=== PATIENT | male | born 1985 | race Asian ===

== ENCOUNTER 2023-06-14 01:54 | Emergency (ER) | payer OTHER, SELFPAY ==
[2023-06-14 02:09] VITALS: BP 121/87
--- NOTE | 2023-06-14 02:55 | ED.GENMED ---
History of Present Illness
General
Chief Complaint: Skin Surface Trauma
Source: patient
Exam Limitations: none
Time Seen by Provider: 06/14/23 02:23
Nursing documentation reviewed up to this point in time: agreed with
Travel History
Have you had any contact with someone who has COVID-19?: No
Do you have any symptoms of coronavirus? Fever > 100 degrees, chills, cough, shortness of breath, sore throat, loss of taste or smell, muscle aches, or headache?: No
History of Present Illness
History of Present Illness:
Patient presents to ED for an evaluation, secondary to continual intermittent bleeding from forehead laceration which occurred yesterday evening. Patient states that he was very tired and was sitting on a kitchen chair, when he slid over and may
have hit his head against the wall. Denies loss of consciousness. Denies any other injuries from the fall. Denies headache. Denies blurred vision. Denies dizziness. Denies nausea or vomiting. Patient unsure of his last tetanus vaccination.
Review of Systems
Review of Systems
Allergies reviewed?: Yes
All Other Systems: ROS reviewed and negative except as documented in HPI and ROS
Constitutional: Reports no symptoms
Skin: Reports other (forehead laceration)
Neurological: Reports no symptoms; Denies dizzy or headache
Phy Exam
Physical Exam
Physical Exam:
Physical Exam
General: no apparent distress, not acutely ill. afebrile
Head: an approx 3cm superficial, linear laceration above left eyebrow, without pulsatile bleeding.
Neck: supple. normal range of motion
Neuro: alert and oriented. no focal neurological deficits
Skin: no rash
Psychiatric: well kept. interactive and cooperative
Extremities: no edema. no calf tenderness.
Course
Vital Signs
Initial and Last Documented VS:
Initial Vital Signs
Temp Pulse Resp BP Pulse Ox
97.5 F 77 16 121/87 99
06/14/23 02:09 06/14/23 02:09 06/14/23 02:09 06/14/23 02:09 06/14/23 02:09
Last Documented Vital Signs
Temp Pulse Resp BP Pulse Ox
97.5 F 77 16 121/87 99
06/14/23 02:09 06/14/23 02:09 06/14/23 02:09 06/14/23 02:09 06/14/23 02:09
Procedures
Laceration Closure
Left Lateral Forehead:
Status of Wound: clean
Size of Wound in cm: 3
Description of Wound Edges: sharp
Preparation: cleaned with SurClens
Anesthesia: 1% Lidocaine with epi
Revision/Debridement: routine- no revision
Type of Closure: single layer closure
Skin Closure Material: 5-0 vicryl
Number of sutures: 5
MDM/Problems Addressed
MDM/Problems Addressed:
Wound well-approximated with placement of 5 sutures. Advised patient to keep the area clean, and follow-up with his primary care physician for potential suture removal, if sutures are still in place after 10 days. Patient otherwise is afebrile,
hemodynamically stable, neurologically intact, and without any distress at time of discharge.
*Critical Care Note
Total Time (30-74mins, 75-104mins- exclusive of procedures): Not Applicable
ED Attending Note
-
Portions of this chart may have been created with voice recognition software.� Occasional wrong word or��sound alike� substitutions may have occurred due to the inherent limitations of voice recognition software.
Discharge Plan
Departure
Patient Disposition: Home (Routine Discharge)
Date of Disposition: 06/14/23
Time of Disposition: 02:55
Patient with high blood pressure during this ER visit?: Yes
Condition: Good
Discharge Problem:
Laceration of forehead
Instructions: Laceration Repair With Stitches (DC)
Prescriptions:
No Action
dextroamphetamine-amphetamine [Adderall] 20 mg Tablet
20 mg PO TID
Referrals:
NONE,* [Active] -
Activity Restrictions/Additional Instructions:
As discussed, please follow up with your primary care physician with any further concerns. You have received absorbable sutures which should be absorbed completely within 10 days. However, if sutures remain, please see your primary care physician
to have your sutures removed.
Interventions
Interventions:
*Risk Screen - Suicide Last Done: 06/14/23 02:09
*Neglect/Abuse Screening Last Done: 06/14/23 02:09
*ED COVID-19 Vaccine History Last Done: 06/14/23 02:09
*Nursing Disposition Last Done: 06/14/23 03:11
ED-Skin Assessment Last Done: 06/14/23 02:38
Discharge Date and Time
Discharge Date/Time: 06/14/23 03:12
Print Language: [id number]
== END 2023-06-14 03:12 | disposition home or self-care (01) ==
LOC: EMR 01:54
PROVIDERS: EMERGENCY PHYSICIAN Emergency Medicine; FAMILY PHYSICIAN Family Medicine
DX: S01.81XA Laceration without foreign body of other part of head, initial encounter (principal); W19.XXXA Unspecified fall, initial encounter
CPT/HCPCS: 99282; 12013